=== PATIENT | male | born 1960 | race Caucasian/White ===

== ENCOUNTER → 2021-08-08 07:45 | Outpatient (CLI) | payer OTHER, SELFPAY ==
--- NOTE | 2021-08-08 | DI.RAD.S_ITS ---
PROCEDURE: XR HIP W PEL IF DONE [place]ASSIE MIN 4V INDICATIONS: pmr TECHNIQUE: AP pelvis with lateral view(s) of the bilateral hip(s). COMPARISON: None. FINDINGS: Bones: [id number] degenerative changes of both hips with subchondral sclerosis of the superior acetabula and osteophytes of the femoral heads. No fractures or dislocations. Pelvic ring appears intact. No suspicious bony lesions. Soft tissues: The visualized bowel gas pattern is normal. No suspicious soft tissue calcifications. IMPRESSION: Mild to moderate degenerative changes of both hips consistent with osteoarthritis. Dictated by: Damien Murillo M.D. on 08/08/2021 at 11:01 Approved by: Damien Murillo M.D. on 08/08/2021 at 11:02
--- NOTE | 2021-08-08 | DI.RAD.S_ITS ---
PROCEDURE: XR SHOULDER LT MIN 2V INDICATIONS: pmr TECHNIQUE: 3 views of the shoulder were acquired. COMPARISON: None. FINDINGS: Bones: No fractures or dislocations. Minimal degenerative changes of the acromioclavicular joint and glenohumeral joint. No erosions or evidence of inflammatory arthropathy. No suspicious bony lesions. Visualized ribs appear intact. Soft tissues: No suspicious soft tissue calcifications. IMPRESSION: Minimal degenerative changes of the acromioclavicular joint and glenohumeral joint. Dictated by: Damien Murillo M.D. on 08/08/2021 at 11:07 Approved by: Damien Murillo M.D. on 08/08/2021 at 11:08
--- NOTE | 2021-08-08 | DI.RAD.S_ITS ---
PROCEDURE: XR LUMBAR SPINE MIN 4V INDICATIONS: pmr TECHNIQUE: 5 views of the lumbar spine were acquired, including bilateral oblique views. COMPARISON: None. FINDINGS: Bones: 5 nonrib-bearing vertebrae are present. Degenerative changes with anterior osteophytes. There is facet arthrosis at L3-4, L4-5, and L5-S1 with grade 1 anterolisthesis of L5-S1. Probable pars defects of L5. L5-S1 demonstrates disc space narrowing and endplate degenerative changes. There is normal bony alignment. No vertebral body compression fractures. No suspicious bony lesions. Soft tissues: Overlying bowel gas pattern is normal. No suspicious soft tissue calcifications. Oblique images: No pars defects. IMPRESSION: 1. Facet arthrosis of L3-4, L4-5, and L5-S1. 2. Probable pars defects bilaterally of L5 with grade 1 anterolisthesis of L5 over S1. 3. Disc space narrowing and endplate degenerative changes consistent with disc disease of L5-S1. Dictated by: Damien Murillo M.D. on 08/08/2021 at 11:03 Approved by: Damien Murillo M.D. on 08/08/2021 at 11:06
--- NOTE | 2021-08-08 | DI.RAD.S_ITS ---
PROCEDURE: XR CERVICAL SPINE 4V OR 5V INDICATIONS: pmr TECHNIQUE: 5 views of the cervical spine acquired. COMPARISON: None. FINDINGS: Bones: No fractures or dislocations to the T1 level. Oblique images demonstrate no bony foraminal stenoses. Minimal degenerative changes of the C5-6 and C6-7 with anterior osteophytes however with no disc space narrowing. Soft tissues: No prevertebral soft tissue swelling. IMPRESSION: Minimal degenerative changes. No acute abnormality. Dictated by: Damien Murillo M.D. on 08/08/2021 at 10:59 Approved by: Damien Murillo M.D. on 08/08/2021 at 11:01
--- NOTE | 2021-08-08 | DI.RAD.S_ITS ---
PROCEDURE: XR SHOULDER RT MIN 2V INDICATIONS: pmr TECHNIQUE: 3 views of the shoulder were acquired. COMPARISON: None. FINDINGS: Bones: No fractures or dislocations. No suspicious bony lesions. Moderate degenerative changes of the right acromioclavicular joint. No degenerative changes of the glenohumeral joint. Visualized ribs appear intact. Soft tissues: No suspicious soft tissue calcifications. IMPRESSION: Moderate degenerative changes of the right acromioclavicular joint. Dictated by: Damien Murillo M.D. on 08/08/2021 at 11:08 Approved by: Damien Murillo M.D. on 08/08/2021 at 11:09
--- NOTE | 2021-08-08 | DI.RAD.S_ITS ---
PROCEDURE: XR SACROILIAC JOINT MIN 3V INDICATIONS: pmr TECHNIQUE: 3 views of the sacroiliac joints were acquired. COMPARISON: None. FINDINGS: Bones: No bony erosions or ankylosis. No suspicious bony lesions. No fractures. Soft tissues: Overlying bowel gas pattern is normal. No suspicious soft tissue densities. IMPRESSION: Normal sacroiliac joints and symphysis pubis. Dictated by: Damien Murillo M.D. on 08/08/2021 at 11:06 Approved by: Damien Murillo M.D. on 08/08/2021 at 11:07
[2021-08-08 09:42] LABS: Add Manual Diff / Slide Review NO; Basophils Absolute Auto 0 /uL (0-100); Basophils Percent Auto 0.4 % (0-2); Eosinophils Absolute Auto 0 /uL (0-450); Eosinophils Percent Auto 0.1 % (2-4); Hematocrit 40.8 % (41-53); Hemoglobin 13.7 g/dL (13.5-17.5); Lymphocytes Absolute Auto 900 /uL (1100-4500); Lymphocytes Percent Auto 10.9 % (25-40); Mean Corpuscular HGB Conc 33.5 % (30-36); Mean Corpuscular Hemoglobin 28.8 PG (26-34); Monocytes Absolute Auto 300 /uL (0-900); Monocytes Percent Auto 3.5 % (3-14); Neutrophils Absolute Auto 7000 /uL (1500-7000); Neutrophils Percent Auto 85.1 % (50-75); Platelet Count 225 X10^3/uL (150-400); Red Blood Cell Count 4.74 X10^6/uL (4.5-5.9); Red Cell Distribution Width 14.3 % (11.6-14.8); White Blood Cell Count 8.2 X10^3/uL (4.5-11.0)
[2021-08-08 10:54] LABS: Alanine Aminotransferase 23 IU/L (<50); Albumin 4.4 g/dL (3.5-5.0); Albumin Globulin Ratio 1.8 (1.0-2.8); Alkaline Phosphatase 50 U/L (38-126); Aspartate Aminotransferase 25 IU/L (17-59); BUN Creatinine Ratio 23.3 (6-22); Bilirubin Total 0.6 mg/dL (0.2-1.3); Blood Urea Nitrogen 20 mg/dL (9-20); C-Reactive Protein Quant < 0.5 mg/dL (<1.0); Calcium 9.6 mg/dL (8.4-10.2); Carbon Dioxide 31 mmol/L (22-32); Chloride 104 mmol/L (98-107); Creatine Kinase 88 U/L (55-170); Estimated Glomerular Filt Rate > 60.0 mL/min (>60); Globulin 2.5 g/dL (1.7-4.1); Glucose 93 mg/dL (80-110); HEMOLYSIS < 15 (0-50); Potassium 4.2 mmol/L (3.4-5.1); Sodium 141 mmol/L (137-145); Total Protein 6.9 g/dL (6.3-8.2)
[2021-08-08 11:04] LABS: Erythrocyte Sedimentation Rate 3 MM/HR (0-15)
[2021-08-09 05:45] LABS: Hepatitis B Surf AB Quant 12.7 mIU/mL (Immunity>9.9)
[2021-08-09 08:36] LABS: Hepatitis B Core Antibody Negative (Negative)
[2021-08-10 22:06] LABS: Hep C Virus Ab w/Reflex Quant NEGATIVE s/c (NEGATIVE)
[2021-08-11 09:39] LABS: QuantiFERON Mitogen Value >10.00 IU/mL (.); QuantiFERON Nil Value 0.15 IU/mL (.); QuantiFERON TB Gold Plus Negative (Negative); QuantiFERON TB1 Ag Value 0.17 IU/mL (.); QuantiFERON TB2 Ag Value 0.17 IU/mL (.)
[2021-08-13 17:54] LABS: Hepatitis B Surface Antigen NEGATIVE s/c (NEGATIVE)
[2021-08-18 16:08] LABS: HLA B27 Negative (.)
== END ==
PROVIDERS: Family Provider Family Medicine; PCP Family Medicine; Referring Provider Internal Medicine Rheumatology; Visit Provider Internal Medicine Rheumatology
DX: M47.816 Spondylosis without myelopathy or radiculopathy, lumbar region (principal); M47.817 Spondylosis without myelopathy or radiculopathy, lumbosacral region; M43.17 Spondylolisthesis, lumbosacral region; M35.3 Polymyalgia rheumatica; M54.2 Cervicalgia; M25.511 Pain in right shoulder; M25.512 Pain in left shoulder; M25.559 Pain in unspecified hip; G89.29 Other chronic pain; Z79.899 Other long term (current) drug therapy
CPT/HCPCS: 36415; 72050; 72110; 72202; 73030; 73522; 80053; 81374; 82550; 85025; 85651; 86140; 86480; 86704; 86706; 86803; 87340

== ENCOUNTER → 2021-10-10 09:07 | Outpatient (CLI) | payer OTHER, SELFPAY ==
[2021-10-10 09:31] LABS: Add Manual Diff / Slide Review NO; Basophils Absolute Auto 0 /uL (0-100); Basophils Percent Auto 0.6 % (0-2); Eosinophils Absolute Auto 100 /uL (0-450); Eosinophils Percent Auto 0.8 % (2-4); Hematocrit 44.3 % (41-53); Hemoglobin 15.1 g/dL (13.5-17.5); Lymphocytes Absolute Auto 1000 /uL (1100-4500); Lymphocytes Percent Auto 16.3 % (25-40); Mean Corpuscular HGB Conc 34.1 % (30-36); Mean Corpuscular Hemoglobin 30.2 PG (26-34); Mean Corpuscular Volume 88.6 fL (80-100); Monocytes Absolute Auto 400 /uL (0-900); Monocytes Percent Auto 6.3 % (3-14); Neutrophils Absolute Auto 4800 /uL (1500-7000); Platelet Count 206 X10^3/uL (150-400); Red Cell Distribution Width 14.9 % (11.6-14.8); White Blood Cell Count 6.3 X10^3/uL (4.5-11.0)
[2021-10-10 09:52] LABS: Erythrocyte Sedimentation Rate 1 MM/HR (0-15)
[2021-10-10 10:13] LABS: Alanine Aminotransferase 27 IU/L (<50); Albumin 4.5 g/dL (3.5-5.0); Albumin Globulin Ratio 1.6 (1.0-2.8); Alkaline Phosphatase 54 U/L (38-126); Aspartate Aminotransferase 32 IU/L (17-59); BUN Creatinine Ratio 19.1 (6-22); Bilirubin Total 0.7 mg/dL (0.2-1.3); Blood Urea Nitrogen 17 mg/dL (9-20); C-Reactive Protein Quant < 0.5 mg/dL (<1.0); Calcium 9.6 mg/dL (8.4-10.2); Carbon Dioxide 32 mmol/L (22-32); Chloride 104 mmol/L (98-107); Estimated Glomerular Filt Rate > 60.0 mL/min (>60); Globulin 2.8 g/dL (1.7-4.1); Glucose 99 mg/dL (80-110); HEMOLYSIS < 15 (0-50); Potassium 4.4 mmol/L (3.4-5.1); Sodium 141 mmol/L (137-145); Total Protein 7.3 g/dL (6.3-8.2)
== END ==
PROVIDERS: Family Provider Family Medicine; PCP Family Medicine; Referring Provider Internal Medicine Rheumatology; Visit Provider Internal Medicine Rheumatology
DX: M35.3 Polymyalgia rheumatica (principal); Z79.52 Long term (current) use of systemic steroids
CPT/HCPCS: 36415; 80053; 85025; 85651; 86140

== ENCOUNTER → 2021-12-12 07:38 | Outpatient (CLI) | payer OTHER, SELFPAY ==
[2021-12-12 09:55] LABS: Add Manual Diff / Slide Review NO; Basophils Absolute Auto 0 /uL (0-100); Basophils Percent Auto 0.5 % (0-2); Eosinophils Absolute Auto 0 /uL (0-450); Eosinophils Percent Auto 0.4 % (2-4); Hematocrit 41.9 % (41-53); Hemoglobin 14.1 g/dL (13.5-17.5); Lymphocytes Absolute Auto 1400 /uL (1100-4500); Lymphocytes Percent Auto 15.7 % (25-40); Mean Corpuscular HGB Conc 33.6 % (30-36); Mean Corpuscular Hemoglobin 29.9 PG (26-34); Mean Corpuscular Volume 88.8 fL (80-100); Monocytes Absolute Auto 500 /uL (0-900); Monocytes Percent Auto 5.5 % (3-14); Neutrophils Absolute Auto 7000 /uL (1500-7000); Neutrophils Percent Auto 77.9 % (50-75); Platelet Count 233 X10^3/uL (150-400); Red Blood Cell Count 4.71 X10^6/uL (4.5-5.9); White Blood Cell Count 8.9 X10^3/uL (4.5-11.0)
[2021-12-12 10:31] LABS: Alanine Aminotransferase 28 IU/L (<50); Albumin 4.4 g/dL (3.5-5.0); Albumin Globulin Ratio 1.5 (1.0-2.8); Alkaline Phosphatase 71 U/L (38-126); Aspartate Aminotransferase 38 IU/L (17-59); Bilirubin Total 0.7 mg/dL (0.2-1.3); Blood Urea Nitrogen 23 mg/dL (9-20); C-Reactive Protein Quant 0.8 mg/dL (<1.0); Calcium 9.2 mg/dL (8.4-10.2); Carbon Dioxide 29 mmol/L (22-32); Chloride 106 mmol/L (98-107); Estimated Glomerular Filt Rate > 60 mL/min (>60); Globulin 2.9 g/dL (1.7-4.1); Glucose 88 mg/dL (80-110); HEMOLYSIS < 15 (0-50); Potassium 4.4 mmol/L (3.4-5.1); Sodium 141 mmol/L (137-145); Total Protein 7.3 g/dL (6.3-8.2)
[2021-12-12 10:37] LABS: Erythrocyte Sedimentation Rate 5 MM/HR (0-15)
== END ==
PROVIDERS: Family Provider Family Medicine; PCP Family Medicine; Referring Provider Internal Medicine Rheumatology; Visit Provider Internal Medicine Rheumatology
DX: M35.3 Polymyalgia rheumatica (principal); Z79.52 Long term (current) use of systemic steroids
CPT/HCPCS: 36415; 80053; 85025; 85651; 86140

== ENCOUNTER → 2022-03-05 07:32 | Outpatient (CLI) | payer OTHER, SELFPAY ==
--- NOTE | 2022-03-05 07:34 | DI.RAD.S_ITS ---
PROCEDURE: XR HAND RT MIN 3V INDICATIONS: bilateral hand pain TECHNIQUE: 3 views of the hand(s) acquired. COMPARISON: None. FINDINGS: Bones: No fractures or dislocations. Carpal bones are normally aligned. No suspicious bony lesions. No joint space narrowing. No periarticular erosions. Soft tissues: No suspicious soft tissue calcifications. IMPRESSION: No joint space narrowing, periarticular erosions, or osteophytes. Dictated by: Ashlyn Senior M.D. on 03/05/2022 at 8:07 Approved by: Ashlyn Senior M.D. on 03/05/2022 at 8:09
--- NOTE | 2022-03-05 07:34 | DI.RAD.S_ITS ---
PROCEDURE: XR HAND LT MIN 3V INDICATIONS: bilateral hand pain TECHNIQUE: 3 views of the hand(s) acquired. COMPARISON: None. FINDINGS: Bones: No acute fracture or dislocation. There is contracture of the 5th digit at the PIP joint. No bony erosions or periarticular osteopenia. No interphalangeal joint space narrowing or osteophytosis. No suspicious bony lesions. Soft tissues: No suspicious soft tissue calcifications. IMPRESSION: Contracture of the left 5th digit. Dictated by: Ashlyn Senior M.D. on 03/05/2022 at 8:09 Approved by: Ashlyn Senior M.D. on 03/05/2022 at 8:09
== END ==
PROVIDERS: Family Provider Family Medicine; PCP Family Medicine; Referring Provider Orthopaedic Surgery; Visit Provider Orthopaedic Surgery
DX: M79.641 Pain in right hand (principal); M79.642 Pain in left hand; M20.092 Other deformity of left finger(s)
CPT/HCPCS: 73130